=== PATIENT | male | born 1940 | race Caucasian/White ===

== ENCOUNTER → 2023-05-14 08:03 | Outpatient (CLI) | payer MEDICARE, SELFPAY ==
[2023-05-14 09:14] LABS: Hematocrit 37.9 % (41-53); Hemoglobin 13.2 g/dL (13.5-17.5); Mean Corpuscular HGB Conc 34.8 % (30-36); Mean Corpuscular Hemoglobin 31.3 PG (26-34); Mean Corpuscular Volume 89.8 fL (80-100); Platelet Count 183 X10^3/uL (150-400); Red Blood Cell Count 4.22 X10^6/uL (4.5-5.9); Red Cell Distribution Width 13.8 % (11.6-14.8); White Blood Cell Count 6.5 X10^3/uL (4.5-11.0)
[2023-05-14 09:32] LABS: HEMOLYSIS < 15 (0-50)
[2023-05-14 09:40] LABS: Alanine Aminotransferase 18 IU/L (<50); Albumin 4.1 g/dL (3.5-5.0); Albumin Globulin Ratio 1.3 (1.0-2.8); Alkaline Phosphatase 55 U/L (38-126); Aspartate Aminotransferase 23 IU/L (17-59); BUN Creatinine Ratio 17.7 (6-22); Blood Urea Nitrogen 14 mg/dL (9-20); Carbon Dioxide 30 mmol/L (22-32); Chloride 103 mmol/L (98-107); Cholesterol 199 mg/dL (140-199); Estimated Glomerular Filt Rate > 60 mL/min (>60); Globulin 3.1 g/dL (1.7-4.1); Glucose 97 mg/dL (80-110); HDL Cholesterol 46 mg/dL (40-60); LDL Cholesterol Calculated 142 mg/dL (<100); Potassium 4.4 mmol/L (3.4-5.1); Sodium 139 mmol/L (137-145); Total Protein 7.2 g/dL (6.3-8.2); Triglycerides 57 mg/dL (35-150)
[2023-05-14 10:11] LABS: TSH w/ Reflex to FT4 1.65 uIU/mL (0.47-4.68)
[2023-05-14 10:12] LABS: Prostate Specific Antigen 0.204 ng/mL (0.10-4.00)
== END ==
PROVIDERS: PCP Internal Medicine; Referring Provider Internal Medicine; Visit Provider Internal Medicine
DX: E78.2 Mixed hyperlipidemia (principal); N40.1 Benign prostatic hyperplasia with lower urinary tract symptoms; I10 Essential (primary) hypertension; N13.8 Other obstructive and reflux uropathy
CPT/HCPCS: 36415; 80053; 80061; 84153; 84443; 85027

== ENCOUNTER 2023-11-26 15:40 | Emergency (ER) | payer MEDICARE, SELFPAY ==
[2023-11-26] VITALS (23 sets, daily range): BP systolic 120–164; BP diastolic 64–116; PULSE 67–143; RESP 15–30; TEMP 36.4; O2SAT 93–97; BMI 29.5
--- NOTE | 2023-11-26 15:48 | DI.RAD.S_ITS ---
PROCEDURE: XR CHEST 1V INDICATIONS: chest pain TECHNIQUE: One view of the chest was acquired. COMPARISON: None. FINDINGS: Surgical changes and devices: None. Lungs and pleura: Lungs are clear. No pleural effusions or pneumothorax. Mediastinum: Mediastinal contours appear normal. Heart size is enlarged. Bones and chest wall: No suspicious bony lesions. Overlying soft tissues appear unremarkable. IMPRESSION: No acute pulmonary process. Dictated by: Annemarie Urbina M.D. on 11/26/2023 at 16:48 Approved by: Annemarie Urbina M.D. on 11/26/2023 at 16:48
--- NOTE | 2023-11-26 16:06 | ED_ITS ---
HPI - Arrhythmia/Palpitations General Chief Complaint: Arrhythmia/Palpitations Stated Complaint: tachy, rt bundle branch block Time Seen by Provider: 11/26/23 16:05 Source: patient Mode of arrival: Wheelchair History of Present Illness HPI narrative: 83-year-old male with history of right bundle-branch block, BPH, MAKEDA, hypertension, hyperlipidemia presents with tachycardia. He was seen in primary care office today with reported heart rate to the 140s, stating he felt comfortable and appearing hemodynamically perfused per call from physician I received prior to patient arrival. Patient states he feels completely normal with no symptoms. He sometimes has mild lightheadedness but denies this currently. Denies chest pain, back pain, abdominal flank pain, fevers, chills, nausea or vomiting, any palpitations, shortness of breath, prior episodes similar to this, rate-controlling medications, anticoagulation, leg swelling, leg pain, syncope, known heart problems, or any other new concerns. He does not drink alcohol. He denies energy drinks or illicit drug use. He has no known thyroid problems. Dr. Akers saw patient. I spoke with him and confirmed we have no prior EKGs. Patient denies prior EKGs or known heart problems. There is chart history of RBBB, but it is not clear where this came from currently. Related Data Previous Rx's Medication Instructions Recorded amlodipine 5 mg tablet 5 mg PO DAILY #90 tabs 05/08/23 lisinopril 20 mg tablet 20 mg PO DAILY #90 tabs 05/08/23 apixaban 5 mg tablet (Eliquis) 5 mg PO BID #30 tabs 11/26/23 diltiazem HCl 60 mg 60 mg PO DAILY #20 caps 11/26/23 capsule,extended release 12 hr Allergies Allergy/AdvReac Type Severity Reaction Status Date / Time No Known Drug Allergies Allergy Verified 11/26/23 12:45 Review of Systems Review of Systems Narrative: Constitutional: no fever, no chills Eyes: no visual disturbance, no discharge Ears, Nose, Mouth, Throat: no rhinorrhea, no sore throat Cardiovascular: no chest pain, no palpitations Respiratory: no cough, no shortness of breath Gastrointestinal: no abdominal pain, no vomiting, no diarrhea Genitourinary: no dysuria, no hematuria Musculoskeletal: no back pain, no neck stiffness Skin: no rash, no wound Neurological: no focal weakness, no focal numbness Patient History Medical History (Updated 11/26/23 @ 19:17 by Dante Gallo MD) RBBB Narrow complex tachycardia Mumps (~1950) Chicken pox (~1949) Skin cancer (~2019) Erectile dysfunction BPH w urinary obs/LUTS Obstructive sleep apnea Mixed hyperlipidemia Essential hypertension Surgical History Anesthesia Brain bleed (~2014) Family History Father Hypertension Mother Breast cancer Social History details: (Kristy Betancur), one son; 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 Smoking Status: Former smoker Smoking Status: Former smoker Substance Use Type: does not use Exam Narrative Exam Narrative: Const: no acute distress, non toxic appearing; calm, conversant, pleasant Eyes: PERRLA, EOMI ENT: mucous membranes moist Neck: supple, non-tender Resp: no respiratory distress, clear to auscultation bilaterally Card: regular tachycardia, no murmurs Abd: non tender diffusely, no rigidity or rebound or guarding Back: no T or L spine tenderness, no CVA tenderness bilaterally Extrem: no deformities, no swelling bilateral lower extremities, 2+ distal pulses all extremities Neuro: ANOx4, child nutrition manager grossly intact, grossly intact sensation and strength all extremities Skin: no rash, warm and dry Initial Vital Signs Initial Vital Signs: Vital Signs Temperature 97.6 F 11/26/23 15:44 Pulse Rate 141 H 11/26/23 15:44 Respiratory Rate 16 11/26/23 15:44 Blood Pressure 123/80 11/26/23 15:44 Pulse Oximetry 97 11/26/23 15:44 Oxygen Delivery Method Room Air 11/26/23 15:44 Course Course Course Narrative: This presentation with EKGs as described below is highly suggestive of supraventricular tachycardia, with suspicion for atrial flutter, atrial fibrillation, SVT, sinus tachycardia possible no seeming less likely at this time. Note on 2 EKGs, I see what appear to be P waves, making ventricular tachycardia extremely unlikely. This is also extremely unlikely given patient's hemodynamic stability and lack of any clear symptoms, with unclear duration of symptoms. I am obtaining CBC, CMP, magnesium, TSH, serial EKGs, chest x-ray, giving small fluid bolus and will closely reassess. EKG shows wide complex rhythm with probable right bundle-branch block, regular tachycardia. Interval prolongation in this setting. Repeat EKG similar. I suspect this is atrial flutter or similar. Given that there are visible P waves, ventricular tachycardia seems extremely unlikely. Patient has also been stable with this with no chest pain or shortness of breath or lightheadedness or syncope, unclear how long he has been in this rhythm but all of this making ventricular dysrhythmia very unlikely. CBC reassuring, no leukocytosis or anemia or thrombocytopenia. INR within normal limits. PTT elevated. CMP overall reassuring. Troponin reassuring. Lipase reassuring. TSH reassuring. Radiology review of CXR below, which I agree with on my independent review: FINDINGS: Surgical changes and devices: None. Lungs and pleura: Lungs are clear. No pleural effusions or pneumothorax. Mediastinum: Mediastinal contours appear normal. Heart size is enlarged. Bones and chest wall: No suspicious bony lesions. Overlying soft tissues appear unremarkable. IMPRESSION: No acute pulmonary process. Dictated by: Annemarie Urbina M.D. on 11/26/2023 at 16:48 After receiving fluids, patient spontaneously converted his rhythm. He initially. He got from atrial flutter to atrial fibrillation with mild associated rapid ventricular response. He then converted completely to normal sinus rhythm. He remains asymptomatic throughout this, appearing very well and perfused. We discussed his risk of stroke vs risk of bleeding and chose together to initiate Eliquis 5 mg p.o. b.i.d. in addition, I did start very low- dose diltiazem, 30 mg p.o., given he was quite tachycardic on arrival and I suspect he may need this. He appears very appropriate for discharge with close follow-up and strict return precautions. I am prescribing him both these medications and refer him to Cardiology, though he understands he should see his primary doctor within 3-5 days for reassessment. Patient understands and agrees with this plan with no other new concerns. He understands careful use of diltiazem, which is being added to other antihypertensives; he is aware of risk of lightheadedness or bradycardia and will pursue close follow up. Repeat exam and vital signs reassuring. Questions answered. Plan reviewed. Patient discharged in stable condition. Note recorded respiratory rate is inaccurate; he had respiratory in mid teens consistently. Orders Ordered: ED Orders 11/26/23 15:48 XR chest 1V Stat EKG-12 Lead Stat 11/26/23 15:54 Complete Blood Count AUTO DIFF Stat Comprehensive Metabolic Panel Stat Lipase Stat Magnesium Stat PTT Partial Thromboplastin Shashi Stat Prothrombin Time INR Stat TSH [Thyroid Stimulating Hormone] Stat Troponin & CK Cardiac Panel Stat Discontinued Medications Adenosine (Adenosine 6 Mg/2 Ml Vial) 6 mg IV NOW ONE Stop: 11/26/23 17:43 Last Admin: 11/26/23 18:00 Dose: Not Given Documented By: SPF Apixaban (Apixaban 5 Mg Tablet) 5 mg PO NOW ONE Stop: 11/26/23 17:59 Last Admin: 11/26/23 18:45 Dose: 5 mg Documented By: SPF Aspirin (Aspirin 81 Mg Chew Tab) 324 mg PO NOW ONE Stop: 11/26/23 15:49 Last Admin: 11/26/23 16:13 Dose: Not Given Documented By: SB Diltiazem HCl (Diltiazem 5 Mg/Ml Sdv) 10 mg IV NOW ONE Stop: 11/26/23 17:59 Last Admin: 11/26/23 18:54 Dose: Not Given Documented By: SPF Diltiazem HCl (Diltiazem 30 Mg Tablet) 30 mg PO NOW ONE Stop: 11/26/23 18:29 Last Admin: 11/26/23 18:45 Dose: 30 mg Documented By: SPF Sodium Chloride (Normal Saline 0.9%) 1,000 mls @ 1,000 mls/hr IV BOLUS PRN PRN Reason: Fluid replacement Vital Signs Vital signs: Vital Signs - 8 hr 11/26/23 15:44 11/26/23 16:18 11/26/23 16:19 Temperature 97.6 F Pulse Rate 141 H 139 H Respiratory Rate 16 18 Blood Pressure 123/80 164/116 H Pulse Oximetry 97 Oxygen Delivery Method Room Air 11/26/23 16:19 11/26/23 16:21 11/26/23 16:21 Temperature Pulse Rate 139 H 140 H Respiratory Rate 17 20 Blood Pressure 129/67 Pulse Oximetry 96 95 Oxygen Delivery Method 11/26/23 16:30 11/26/23 16:30 11/26/23 16:41 Temperature Pulse Rate 140 H Respiratory Rate 17 Blood Pressure 141/74 H 130/68 Pulse Oximetry 95 Oxygen Delivery Method Room Air 11/26/23 16:41 11/26/23 16:47 11/26/23 16:47 Temperature Pulse Rate 140 H 140 H Respiratory Rate 15 19 Blood Pressure 142/69 H Pulse Oximetry 95 96 Oxygen Delivery Method 11/26/23 16:48 11/26/23 16:48 11/26/23 16:49 Temperature Pulse Rate 140 H Respiratory Rate 26 H Blood Pressure 138/68 134/68 Pulse Oximetry 95 Oxygen Delivery Method 11/26/23 16:49 11/26/23 16:50 11/26/23 16:50 Temperature Pulse Rate 140 H 140 H Respiratory Rate 24 24 Blood Pressure 127/71 Pulse Oximetry 96 97 Oxygen Delivery Method 11/26/23 16:51 11/26/23 16:51 11/26/23 17:00 Temperature Pulse Rate 141 H 140 H Respiratory Rate 23 20 Blood Pressure 124/70 Pulse Oximetry 97 96 Oxygen Delivery Method 11/26/23 17:00 11/26/23 17:10 11/26/23 17:10 Temperature Pulse Rate 140 H Respiratory Rate 23 Blood Pressure 132/66 133/64 Pulse Oximetry 96 Oxygen Delivery Method 11/26/23 17:30 11/26/23 18:00 11/26/23 18:06 Temperature Pulse Rate 143 H 74 Respiratory Rate 16 25 H Blood Pressure 136/65 Pulse Oximetry 96 94 Oxygen Delivery Method 11/26/23 18:06 11/26/23 18:10 11/26/23 18:10 Temperature Pulse Rate 75 75 Respiratory Rate 16 26 H Blood Pressure 131/71 Pulse Oximetry 96 94 Oxygen Delivery Method 11/26/23 18:20 11/26/23 18:20 11/26/23 18:30 Temperature Pulse Rate 73 Respiratory Rate 30 H Blood Pressure 129/75 124/70 Pulse Oximetry 95 Oxygen Delivery Method 11/26/23 18:30 11/26/23 18:40 11/26/23 18:40 Temperature Pulse Rate 69 70 Respiratory Rate 15 15 Blood Pressure 120/71 Pulse Oximetry 95 93 Oxygen Delivery Method 11/26/23 18:45 11/26/23 18:50 11/26/23 18:50 Temperature Pulse Rate 70 72 Respiratory Rate 25 H Blood Pressure 120/71 149/72 H Pulse Oximetry 94 Oxygen Delivery Method 11/26/23 19:00 11/26/23 19:00 Temperature Pulse Rate 67 Respiratory Rate 26 H Blood Pressure 140/66 Pulse Oximetry 95 Oxygen Delivery Method MDM - Arrhythmia/Palpitations Lab Data 11/26/23 15:54 11/26/23 15:54 Labs: Lab Results 11/26/23 Range/Units 15:54 WBC 8.8 (4.5-11.0) X10^3/uL RBC 4.63 (4.5-5.9) X10^6/uL Hgb 14.5 (13.5-17.5) g/dL Hct 41.9 (41-53) % MCV 90.6 (80-100) fL MCH 31.4 (26-34) PG MCHC 34.7 (30-36) % RDW 13.3 (11.6-14.8) % Plt Count 260 (150-400) X10^3/uL Neut % (Auto) 51.1 (50-75) % Lymph % (Auto) 37.0 (25-40) % Porter % (Auto) 7.9 (3-14) % Eos % (Auto) 3.4 (2-4) % Baso % (Auto) 0.6 (0-2) % Neut # (Auto) 4500 (5096-4599) /uL Lymph # (Auto) 3300 (2933-5440) /uL Porter # (Auto) 700 (0-900) /uL Eos # (Auto) 300 (0-450) /uL Baso # (Auto) 100 (0-100) /uL PT 12.6 H (9.4-12.5) SECONDS INR 1.1 (0.9-1.3) APTT 69 H (25.1-36.5) SECONDS Sodium 140 (137-145) mmol/L Potassium 4.7 (3.4-5.1) mmol/L Chloride 103 (98-107) mmol/L Carbon Dioxide 31 (22-32) mmol/L BUN 23 H (9-20) mg/dL Creatinine 0.93 (0.66-1.25) mg/dL Estimated GFR > 60 (>60) mL/min BUN/Creatinine Ratio 24.7 H (6-22) Glucose 105 (80-110) mg/dL Calcium 9.3 (8.4-10.2) mg/dL Magnesium 2.1 (1.6-2.3) mg/dL Total Bilirubin 0.7 (0.2-1.3) mg/dL AST 24 (17-59) IU/L ALT 19 (<50) IU/L Alkaline Phosphatase 69 (38-126) U/L Total Creatine Kinase 40 L (55-170) U/L Troponin I < 0.012 (0.01-0.034) ng/mL Total Protein 8.1 (6.3-8.2) g/dL Albumin 4.5 (3.5-5.0) g/dL Globulin 3.6 (1.7-4.1) g/dL Albumin/Globulin Ratio 1.3 (1.0-2.8) Lipase 63 (23-300) U/L TSH 1.70 (0.47-4.68) uIU/mL Discharge Plan Departure Patient Disposition: Home Clinical Impression: Tachycardia, Atrial fibrillation, Atrial flutter Instructions: DI for Atrial Fibrillation Activity Restrictions/Additional Instructions: It was a pleasure taking care of you today. It is important to fully read and understand the below. Please ask us if you have any questions. We think the most likely cause of your fast heart rate today was a combination of atrial flutter and atrial fibrillation. As discussed, you did very well here, converting on your own to a normal rhythm with fluids alone. We discussed however the importance of blood thinners and rate controlling medications, and I am prescribing you both Eliquis and diltiazem as discussed. I am also referring you to cardiology. Regardless, please see your primary doctor within 3-5 days to discuss further testing and treatment. No tests or assessments are perfect, and your condition could private branch exchange repairer time. If your symptoms change or worsen, it is very important you immediately seek medical care. If you have any new or worsening pain, lightheadedness or passing out, feeling your heart beating funny, shortness of breath, fever, vomiting, confusion, numbness, weakness, or anything else that concerns you, please immediately seek medical care. If you have been prescribed any medications: please read the drug package inserts on how to properly use the medication and any potential side effects. If you had labs (blood tests) or imaging (CT scan or x-rays) done during your visit: please follow up on the results of these with your primary care doctor, as discussed. In addition, please know the results we received today may be preliminary. Our usual practice is to follow up on tests within a few days of a patient's discharge from the Emergency Department and notify you of any changes. These may lead to changes to your treatment plan. However, the best way to obtain and interpret these test results is through your Primary Care Provider. If you need to update your contact information, please stop by the motel front desk clerk and alert the Registration personnel before you leave the Emergency Department. Thank you for the opportunity to participate in your healthcare. We are always here and happy to see you in the future. Prescriptions: New Eliquis 5 mg tablet 5 mg PO BID Qty: 30 0RF diltiazem HCl 60 mg capsule,extended release 12 hr 60 mg PO DAILY Qty: 20 0RF No Action amlodipine 5 mg tablet 5 mg PO DAILY Qty: 90 3RF lisinopril 20 mg tablet 20 mg PO DAILY Qty: 90 3RF Referrals: Mil Akers MD [Primary Care Provider] - Stand Alone Forms: Patient Portal/API
[2023-11-26 16:09] LABS: Add Manual Diff / Slide Review NO; Basophils Absolute Auto 100 /uL (0-100); Basophils Percent Auto 0.6 % (0-2); Eosinophils Absolute Auto 300 /uL (0-450); Eosinophils Percent Auto 3.4 % (2-4); Hematocrit 41.9 % (41-53); Hemoglobin 14.5 g/dL (13.5-17.5); Lymphocytes Absolute Auto 3300 /uL (1100-4500); Mean Corpuscular HGB Conc 34.7 % (30-36); Mean Corpuscular Hemoglobin 31.4 PG (26-34); Mean Corpuscular Volume 90.6 fL (80-100); Monocytes Absolute Auto 700 /uL (0-900); Monocytes Percent Auto 7.9 % (3-14); Neutrophils Absolute Auto 4500 /uL (1500-7000); Neutrophils Percent Auto 51.1 % (50-75); Platelet Count 260 X10^3/uL (150-400); Red Blood Cell Count 4.63 X10^6/uL (4.5-5.9); Red Cell Distribution Width 13.3 % (11.6-14.8); White Blood Cell Count 8.8 X10^3/uL (4.5-11.0)
[2023-11-26 16:15] LABS: INR 1.1 (0.9-1.3); Prothrombin Time 12.6 SECONDS (9.4-12.5)
[2023-11-26 16:18] LABS: PTT Partial Thromboplastin Tim 69 SECONDS (25.1-36.5)
[2023-11-26 16:25] LABS: Alanine Aminotransferase 19 IU/L (<50); Albumin 4.5 g/dL (3.5-5.0); Albumin Globulin Ratio 1.3 (1.0-2.8); Alkaline Phosphatase 69 U/L (38-126); Aspartate Aminotransferase 24 IU/L (17-59); BUN Creatinine Ratio 24.7 (6-22); Bilirubin Total 0.7 mg/dL (0.2-1.3); Blood Urea Nitrogen 23 mg/dL (9-20); Calcium 9.3 mg/dL (8.4-10.2); Carbon Dioxide 31 mmol/L (22-32); Chloride 103 mmol/L (98-107); Creatine Kinase 40 U/L (55-170); Estimated Glomerular Filt Rate > 60 mL/min (>60); Globulin 3.6 g/dL (1.7-4.1); Glucose 105 mg/dL (80-110); HEMOLYSIS < 15 (0-50); Lipase 63 U/L (23-300); Magnesium 2.1 mg/dL (1.6-2.3); Potassium 4.7 mmol/L (3.4-5.1); Sodium 140 mmol/L (137-145); Total Protein 8.1 g/dL (6.3-8.2)
--- NOTE | 2023-11-26 16:30 | PC.NURSE ---
Pt came over because he was told to by his PCP during routine check up.
[2023-11-26 16:36] LABS: Troponin I < 0.012 ng/mL (0.01-0.034)
[2023-11-26] MEDS: APIXABAN 5 MG TABLET PO (18:45)
[2023-11-26] MEDS: dilTIAZem 30 MG TABLET PO (18:45)
== END 2023-11-26 19:28 | disposition home or self-care (01) ==
PROVIDERS: Emergency Provider Emergency Medicine; PCP Internal Medicine
DX: R00.0 Tachycardia, unspecified (principal); I48.91 Unspecified atrial fibrillation; I48.92 Unspecified atrial flutter
CPT/HCPCS: 36415; 71045; 80053; 82550; 83690; 83735; 84443; 84484; 85025; 85610; 85730; 93005; 93010; 99284

== ENCOUNTER → 2023-12-02 09:00 | Outpatient (CLI) | payer MEDICARE, SELFPAY ==
--- NOTE | 2023-12-02 09:01 | DI.ECHO.S_ITS ---
[facility] +---------+ [facility] +---------+ : : [address] [place] : : : : [id number] : : : : Phone: [phone]+ Echocardiogram Report + + :Name: NADIA LORD Study Date: 12/02/2023 Height: 70 in : :[facility] ReadingLocation: Weight: 206 lb : : Gender: Male BSA: 2.1 m2 : :: 1940 Age: 83 yrs BP: 170/81 mmHg: :Reason For Study: ATRIAL FIBRILLATION : :Ordering Physician: BARBARA, : :YONY Performed By: Ene Lee : :Referring: YONY JIMENEZ : + + Interpretation Summary This is a technically difficult study enhanced with Definitiy echocontrast. Sinus bradycardia; HR mostly 53-55 bpm during the exam. Normal LV size and wall thickness. There is distal septal dyskinesis; otherwise global hypokinesis with moderately reduced LV systolic function estimated at 35-40%. EPSS is 1.8 cm consistent with advanced cardiomyopathy. Mild RA enlargement; mild RV enlargement. Mild aortic stenosis with mild associated aortic regurgitation. No prior study available for comparison. Procedure: A two-dimensional transthoracic echocardiogram with color flow and Doppler was performed. The study quality was technically adequate. A contrast injection of Definity was performed to improve assessment of LV function. There is no prior echocardiogram noted for this patient. The patient was in sinus bradycardia with heart rates between 52-75 bpm during the exam. Left Ventricle: The left ventricle is normal in size. The ejection fraction is estimated to be 35-40%. Right Ventricle: The right ventricle is mildly dilated. The right ventricular systolic function is normal. Atria: The left atrial size is normal. The right atrium is mildly dilated. There is no Doppler evidence for an interatrial shunt. Mitral Valve: The mitral valve leaflets appear mildly thickened, but open well. There is mild mitral annular calcification. There is mild mitral regurgitation. Aortic Valve: The aortic valve is mildly calcified. The aortic valve is trileaflet. There is mild aortic stenosis. The peak aortic velocity is 2.7 m/sec. The aortic valve mean gradient is 17 mmHg. The calculated aortic valve area is 1.2 cm2. There is mild aortic regurgitation. Tricuspid Valve: The tricuspid valve is normal in structure and function. There is a trace or physiologic amount of tricuspid regurgitation. Pulmonary artery pressures cannot be estimated because of the lack of a measurable TR jet velocity. Pulmonic Valve: The pulmonic valve is not well seen, but is grossly normal. There is a trace or physiologic amount of pulmonic regurgitation. Great Vessels: The aortic root is normal size. The ascending aorta is at the upper limits of normal in size. The IVC is of normal diameter and collapses greater than 50% with a sniff. This suggests a low right atrial pressure of 3 mm Hg. Pericardium/ Pleura There is no pericardial effusion. There is no pleural effusion. MMode/2D Measurements & Calculations LVIDd: 5.9 cm LVOT diam: 2.3 cm LVIDs: 4.5 cm Ao root diam: 3.9 cm FS: 23.1 % asc Aorta Diam: 3.7 cm EPSS: 1.8 cm Ao Arch Diam (Prox Trans): 2.8 cm IVSd: 1.0 cm LVPWd: 0.75 cm LV burnett. diameter/BSA (cm/m^2): 2.8 LV sys. diameter/BSA (cm/m^2): 2.1 LA A2 area: 17.6 cm2 RA long axis: 5.3 cm LA A4 area: 21.3 cm2 RA area: 22.6 cm2 LA length (vol): 6.5 cm RA vol: 81.1 ml LA vol: 49.2 ml RA : 38.4 ml/m2 LA vol index: 23.3 ml/m2 IVC diam: 1.1 cm RVD1 (basal): 4.3 cm RVD2 (mid): 3.5 cm TAPSE: 2.1 cm Doppler Measurements & Calculations Ao V2 max: 265.7 cm/sec LVOT Max Enoch: 77.2 cm/sec Ao V2 mean: 187.4 cm/sec LV V1 max P.4 mmHg Ao max P.4 mmHg LV V1 VTI: 18.1 cm Ao mean P.4 mmHg GABRIELA(I,D): 1.2 cm2 Ao V2 VTI: 62.7 cm GABRIELA(V,D): 1.2 cm2 sev ratio: 0.29 GABRIEAL indexed to BSA (cm^2/m^2): 0.56 AI P1/2t: 703.4 msec AI dec slope: 153.7 cm/sec2 MV E max enoch: 74.6 cm/sec PA V2 max: 91.2 cm/sec MV A max enoch: 93.6 cm/sec PA V2 mean: 72.7 cm/sec MV E/A: 0.80 PA mean P.2 mmHg Med Peak E' Enoch: 5.3 cm/sec PA pr(Accel): 34.5 mmHg E/E' med: 14.0 Lat Peak E' Enoch: 8.3 cm/sec E/E' lat: 9.0 E/e' average: 11.5 MV dec time: 0.28 sec SV(LVOT): 74.1 ml Electronically signed by: Kalpana Huber M.D. on Reading Physician:12/03/2023 12:20 AM
== END ==
PROVIDERS: PCP Internal Medicine; Referring Provider Internal Medicine; Visit Provider Internal Medicine
DX: I08.0 Rheumatic disorders of both mitral and aortic valves (principal); I48.0 Paroxysmal atrial fibrillation; I48.92 Unspecified atrial flutter
CPT/HCPCS: C8929; Q9957

== ENCOUNTER → 2023-12-05 09:30 | Outpatient (CLI) | payer MEDICARE, SELFPAY | LOC: CAR 09:31 | PROVIDERS: PCP Internal Medicine; Referring Provider Internal Medicine; Visit Provider Internal Medicine | DX: I48.91 Unspecified atrial fibrillation (principal); I48.92 Unspecified atrial flutter | CPT/HCPCS: 93246 ==

== ENCOUNTER → 2024-01-22 10:17 | Outpatient (CLI) | payer MEDICARE, SELFPAY ==
[2024-01-22 13:08] LABS: Alanine Aminotransferase 18 IU/L (<50); Albumin 4.4 g/dL (3.5-5.0); Albumin Globulin Ratio 1.6 (1.0-2.8); Alkaline Phosphatase 68 U/L (38-126); Aspartate Aminotransferase 39 IU/L (17-59); BUN Creatinine Ratio 22.7 (6-22); Bilirubin Total 1.1 mg/dL (0.2-1.3); Blood Urea Nitrogen 20 mg/dL (9-20); Calcium 9.4 mg/dL (8.4-10.2); Carbon Dioxide 27 mmol/L (22-32); Chloride 106 mmol/L (98-107); Estimated Glomerular Filt Rate > 60 mL/min (>60); Globulin 2.8 g/dL (1.7-4.1); Glucose 105 mg/dL (80-110); HEMOLYSIS < 15 (0-50); Magnesium 2.2 mg/dL (1.6-2.3); Potassium 5.3 mmol/L (3.4-5.1); Sodium 140 mmol/L (137-145); Total Protein 7.2 g/dL (6.3-8.2)
== END ==
LOC: LAB 10:19
PROVIDERS: PCP Internal Medicine; Referring Provider Specialist; Visit Provider Specialist
DX: E78.00 Pure hypercholesterolemia, unspecified (principal); I10 Essential (primary) hypertension; I48.92 Unspecified atrial flutter
CPT/HCPCS: 36415; 80053; 80061; 83704; 83735

== ENCOUNTER → 2024-01-23 08:28 | Outpatient (CLI) | payer MEDICARE, SELFPAY ==
--- NOTE | 2024-01-23 08:29 | DI.NM.S_ITS ---
PROCEDURE: NM BRIELLE PERF SPECT REST & STR Rest and exercise myocardial perfusion SPECT with gated imaging and ejection fraction RADIOPHARMACEUTICAL: 12.5 mCi Tc-99m sestamibi IV at rest and 25.3 mCi Tc-99m sestamibi IV at peak exercise. A 4-ady-seobzxym was performed. INDICATIONS: Cardiomyopathy, unspecified TECHNIQUE: Radiopharmaceutical was injected at peak stress test, and also at rest. SPECT images were obtained. SPECT myocardial perfusion images were displayed in short axis, horizontal long axis, and vertical long axis views. Gated images were reviewed using [employer] software. COMPARISON: None. CARDIAC STRESS: A standard [place] treadmill exercise tolerance test was performed by the patient under the supervision of an attending staff. The patient exercised for 5 minutes and 24 seconds; 7.0 METS; functional aerobic impairment (LUL) is -15%. Hemodynamic data: There is normal blood pressure and heart rate response to exercise stress. Patient achieved 96% of maximum predicted heart rate at peak exercise. Maximum blood pressure 196/60. Symptoms: Patient denied chest pain during exercise. EKG: No diagnostic EKG changes of ischemia; occasional PVCs. FINDINGS: Raw data: There is good myocardial labeling by radiotracer. No significant motion artifacts. Pjlu-yp-yefcd ratio is 0.30 (normal is less than 0.38 for sestamibi tracer, and less than 0.50 for thallium tracer). Left ventricle function: Gated images demonstrate normal left ventricle wall thickening. No segmental wall motion abnormality. No transient ischemic dilation; TID is 0.81 (normal less than 1.3). The left ventricle resting end-diastolic volume is 159 mL. Calculated left ventricle stress ejection fraction is 70%; normal values are above 45%. Myocardial perfusion: There is a small size, mild intensity fixed inferoapical and inferolateral apical wall defect that improves but does not completely resolve in prone imaging. No reversible perfusion defects. IMPRESSION: Low risk study. Small size, mild intensity fixed inferoapical and inferolateral apical wall defect improves but does not completely resolve with prone imaging. There is no significant hypokinesis noted in this area making this most consistent with artifact however subendocardial scar cannot be ruled out. No reversible perfusion defects. Dilated LV with an EDV of 159 mL with normal function. No exercise-induced ECG changes other than a rare. Normal hemodynamic response. Good exercise capacity. Dictated by: Adela Zabala D.O. on 01/23/2024 at 16:20 Approved by: Adela Zabala D.O. on 01/23/2024 at 16:27
== END ==
PROVIDERS: PCP Internal Medicine; Referring Provider Specialist; Visit Provider Specialist
DX: I42.9 Cardiomyopathy, unspecified (principal)
CPT/HCPCS: 78452; 93017; A9502

== ENCOUNTER → 2024-06-16 07:17 | Outpatient (CLI) | payer MEDICARE, BC, SELFPAY ==
[2024-06-16 07:48] LABS: Add Manual Diff / Slide Review NO; Basophils Absolute Auto 0 /uL (0-100); Basophils Percent Auto 0.6 % (0-2); Eosinophils Absolute Auto 300 /uL (0-450); Eosinophils Percent Auto 4.4 % (2-4); Hematocrit 36.7 % (41-53); Hemoglobin 12.6 g/dL (13.5-17.5); Lymphocytes Absolute Auto 3400 /uL (1100-4500); Mean Corpuscular HGB Conc 34.4 % (30-36); Mean Corpuscular Hemoglobin 31.2 PG (26-34); Mean Corpuscular Volume 90.5 fL (80-100); Monocytes Absolute Auto 600 /uL (0-900); Monocytes Percent Auto 8.2 % (3-14); Neutrophils Absolute Auto 3300 /uL (1500-7000); Neutrophils Percent Auto 42.8 % (50-75); Platelet Count 205 X10^3/uL (150-400); Red Blood Cell Count 4.06 X10^6/uL (4.5-5.9); Red Cell Distribution Width 13.7 % (11.6-14.8); White Blood Cell Count 7.8 X10^3/uL (4.5-11.0)
[2024-06-16 08:31] LABS: Appearance Urine UA CLEAR; Bilirubin Urine UA NEGATIVE (NEGATIVE); Color Urine UA YELLOW; Glucose Urine UA NEGATIVE (Negative); Ketones Urine UA NEGATIVE (NEGATIVE); Leukocyte Esterase Urine UA NEGATIVE (NEGATIVE); Nitrite Urine UA NEGATIVE (Negative); Occult Blood Urine UA NEGATIVE (Negative); Protein Urine UA NEGATIVE (Negative); Specific Gravity Urine UA 1.025 (1.000-1.035); Urobilinogen Urine UA 0.2 E.U./dL (0.2); pH Urine UA 5.5 (4.5-8.0)
[2024-06-16 09:00] LABS: Bacteria Urine None Seen; Culture Indicated Urine Cult Not Indicated; RBC Urine None Seen (0-5/HPF); Squamous Epithelial Cell Urine None Seen (0-5/HPF); Urine Volume 10mL (spun); WBC Urine None Seen (0-5/HPF)
[2024-06-16 09:04] LABS: Prostate Specific Antigen 0.188 ng/mL (0.10-4.00)
== END ==
PROVIDERS: PCP Internal Medicine; Referring Provider Internal Medicine; Visit Provider Internal Medicine
DX: N13.8 Other obstructive and reflux uropathy (principal); N40.1 Benign prostatic hyperplasia with lower urinary tract symptoms
CPT/HCPCS: 36415; 81001; 84153; 85025

== ENCOUNTER → 2024-07-14 08:37 | Outpatient (CLI) | payer MEDICARE, BC, SELFPAY ==
[2024-07-14 09:46] LABS: Hematocrit 38.2 % (41-53); Hemoglobin 12.9 g/dL (13.5-17.5); Mean Corpuscular HGB Conc 33.9 % (30-36); Mean Corpuscular Hemoglobin 31.2 PG (26-34); Mean Corpuscular Volume 92.1 fL (80-100); Platelet Count 237 X10^3/uL (150-400); Red Blood Cell Count 4.14 X10^6/uL (4.5-5.9); Red Cell Distribution Width 14.1 % (11.6-14.8); White Blood Cell Count 7.5 X10^3/uL (4.5-11.0)
[2024-07-14 10:16] LABS: Alanine Aminotransferase 22 IU/L (<50); Albumin 4.3 g/dL (3.5-5.0); Albumin Globulin Ratio 1.6 (1.0-2.8); Alkaline Phosphatase 65 U/L (38-126); Aspartate Aminotransferase 24 IU/L (17-59); BUN Creatinine Ratio 19.3 (6-22); Bilirubin Total 0.9 mg/dL (0.2-1.3); Blood Urea Nitrogen 16 mg/dL (9-20); Calcium 9.5 mg/dL (8.4-10.2); Carbon Dioxide 29 mmol/L (22-32); Chloride 101 mmol/L (98-107); Estimated Glomerular Filt Rate > 60 mL/min (>60); Globulin 2.7 g/dL (1.7-4.1); Glucose 103 mg/dL (80-110); HEMOLYSIS < 15 (0-50); Magnesium 1.9 mg/dL (1.6-2.3); Potassium 4.4 mmol/L (3.4-5.1); Sodium 137 mmol/L (137-145)
== END ==
LOC: LAB 08:39
PROVIDERS: PCP Internal Medicine; Referring Provider Specialist; Visit Provider Specialist
DX: E78.00 Pure hypercholesterolemia, unspecified (principal); I10 Essential (primary) hypertension; I48.92 Unspecified atrial flutter
CPT/HCPCS: 36415; 80053; 80061; 83704; 83735; 85027

== ENCOUNTER 2024-11-30 11:52 | Emergency (ER) | payer MEDICARE, BC, SELFPAY ==
[2024-11-30] VITALS (48 sets, daily range): BP systolic 81–135; BP diastolic 50–77; PULSE 45–144; RESP 16–35; TEMP 36.3–36.4; O2SAT 93–97; BMI 29.4
--- NOTE | 2024-11-30 12:01 | DI.RAD.S_ITS ---
PROCEDURE: XR CHEST 1V INDICATIONS: chest pain TECHNIQUE: One view of the chest was acquired. COMPARISON: [facility], CR, XR CHEST 1V, 11/26/2023, 15:53. FINDINGS: Surgical changes and devices: None. Lungs and pleura: Lungs are clear. No pleural effusions or pneumothorax. Mediastinum: Mediastinal contours appear normal. Heart size is normal. Bones and chest wall: No suspicious bony lesions. Overlying soft tissues appear unremarkable. IMPRESSION: No acute cardiopulmonary abnormality is seen. Dictated by: Kia Cortés M.D. on 11/30/2024 at 11:20 Approved by: Kia Cortés M.D. on 11/30/2024 at 11:22
--- NOTE | 2024-11-30 12:01 | EKG_ITS ---
[address] [address] Test Date: 2024-11-30 Pat Name: George Vasquez Department: [facility] Room: Gender: Male Manager Council: DENNY : 1940 Requested By: Order Number: [id number] Reading MD: Maninder Elizondo Measurements Intervals [place] Rate: 141 P: NM: 116 QRS: 269 QRSD: 140 T: 74 QT: 342 QTc: 523 Interpretive Statements Critical Test Result: High HR Sinus tachycardia Right bundle branch block Inferior infarct , age undetermined T wave abnormality, consider lateral ischemia Electronically Signed On 12-01-2024 8:46:26 PDT by Maninder Elizondo
[2024-11-30 12:20] LABS: Add Manual Diff / Slide Review NO; Basophils Absolute Auto 0 /uL (0-100); Basophils Percent Auto 0.5 % (0-2); Eosinophils Absolute Auto 300 /uL (0-450); Eosinophils Percent Auto 4.1 % (2-4); Hematocrit 42.3 % (41-53); Hemoglobin 14.3 g/dL (13.5-17.5); Lymphocytes Absolute Auto 3000 /uL (1100-4500); Lymphocytes Percent Auto 38.6 % (25-40); Mean Corpuscular HGB Conc 33.8 % (30-36); Mean Corpuscular Hemoglobin 30.8 PG (26-34); Mean Corpuscular Volume 91.2 fL (80-100); Monocytes Absolute Auto 400 /uL (0-900); Monocytes Percent Auto 5.2 % (3-14); Neutrophils Absolute Auto 4100 /uL (1500-7000); Neutrophils Percent Auto 51.6 % (50-75); Platelet Count 232 X10^3/uL (150-400); Red Blood Cell Count 4.64 X10^6/uL (4.5-5.9); White Blood Cell Count 7.9 X10^3/uL (4.5-11.0)
--- NOTE | 2024-11-30 12:24 | PC.NURSE ---
rhythm appears VTACH. attempted vagal manuevers where pt blew into syringe to help induce conversion. unsuccessful. VS stable at this time. Dr Mckeon in to see and states afib RVR and last EKG appears the same. Diltiazem ordered. Code cart in room.
[2024-11-30 12:27] LABS: INR 1.2 (0.9-1.3); Prothrombin Time 13.8 SECONDS (9.4-12.5)
[2024-11-30] MEDS: dilTIAZem 25 MG/5 ML SDV 10 MG IV (12:28)
[2024-11-30 12:32] LABS: Alanine Aminotransferase 31 IU/L (<50); Albumin 4.5 g/dL (3.5-5.0); Albumin Globulin Ratio 1.5 (1.0-2.8); Alkaline Phosphatase 57 U/L (38-126); Aspartate Aminotransferase 34 IU/L (17-59); BUN Creatinine Ratio 19.1 (6-22); Bilirubin Total 0.9 mg/dL (0.2-1.3); Blood Urea Nitrogen 18 mg/dL (9-20); Calcium 9.4 mg/dL (8.4-10.2); Carbon Dioxide 25 mmol/L (22-32); Chloride 103 mmol/L (98-107); Creatine Kinase 57 U/L (55-170); Estimated Glomerular Filt Rate > 60 mL/min (>60); Globulin 3.1 g/dL (1.7-4.1); Glucose 150 mg/dL (80-110); HEMOLYSIS 20 (0-50); Lipase 54 U/L (23-300); Magnesium 1.8 mg/dL (1.6-2.3); Sodium 138 mmol/L (137-145); Total Protein 7.6 g/dL (6.3-8.2)
[2024-11-30 12:43] LABS: NT-proBNP (BNP-Adult 18+) 504 pg/mL (<450); Troponin I < 0.012 ng/mL (0.01-0.034)
[2024-11-30 12:57] LABS: PTT Partial Thromboplastin Tim 125 SECONDS (25.1-36.5)
[2024-11-30] MEDS: METOPROLOL TARTRATE 5 MG/5 ML INJ IV (13:06)
--- NOTE | 2024-11-30 13:20 | PC.NURSE ---
Addendum entered by Trina Harrison R.N. 11/30/24 13:51: Pt states he went to bed fine Original Note: Pt states he went to check his vitals this morning prior to taking bp meds and noticed heart rate was high and low. pt states he did not take his bpmeds this morning bc his bp was low.. Pt noticed when he got up and walked up a couple stairs he felt light headed. pt states he is compliant with his medications.
--- NOTE | 2024-11-30 13:52 | ED_ITS ---
HPI - Arrhythmia/Palpitations General Chief Complaint: Arrhythmia/Palpitations Stated Complaint: Dizzyness, Low BP, High Pulse Time Seen by Provider: 11/30/24 12:09 Source: patient Mode of arrival: Ambulatory History of Present Illness HPI narrative: Patient is a 84-year-old male history of paroxysmal atrial fibrillation on Pradaxa found to be AFib with RVR. He was seen evaluated here last year for the same he spontaneously converted. He has been taking his medication he has not missed a dose. He reports he has feeling a little dizzy and lightheaded. No other symptoms Related Data Home Medications Medication Instructions Recorded Confirmed atorvastatin 20 mg tablet 20 mg PO DAILY 01/09/24 06/24/24 metoprolol tartrate 25 mg tablet 25 mg PO BID 01/09/24 06/24/24 Previous Rx's Medication Instructions Recorded amlodipine 5 mg tablet 5 mg PO DAILY #90 tabs 05/08/23 lisinopril 20 mg tablet 20 mg PO DAILY #90 tabs 05/08/23 dabigatran etexilate 150 mg capsule 150 mg PO BID #60 caps 11/28/23 tamsulosin 0.4 mg capsule 0.4 mg PO BEDTIME #90 caps 06/24/24 Allergies Allergy/AdvReac Type Severity Reaction Status Date / Time No Known Drug Allergies Allergy Verified 11/30/24 11:56 Patient History Medical History Chronic anticoagulation Paroxysmal atrial fibrillation RBBB Mumps (~1950) Chicken pox (~1949) Skin cancer (~2019) Erectile dysfunction BPH w urinary obs/LUTS Obstructive sleep apnea Mixed hyperlipidemia Essential hypertension Surgical History Anesthesia Brain bleed (~2014) Family History Father Hypertension Mother Breast cancer Social History details: (Kristy Betancur), one son; 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 HEENT: Head atraumatic,EOMI, pupils reactive, face symmetric, moist mucous membranes CARDIOVASCULAR: Regular tachycardic rhythm no murmur RESPIRATORY: Breath sounds equal bilaterally, no wheezes rales or rhonchi. ABDOMEN: Soft, nontender. Normoactive bowel sounds all 4 quadrants. No guarding or rebound. EXTREMITIES: Normal range of motion, no clubbing or edema. Neurovascularly intact NEUROLOGICAL: Alert and oriented x4.Normal gait and speech. Cranial nerves II through XII grossly intact. SKIN: Warm, dry, no laceration, no petechiae, no rashes or lesions. Procedures Cardioversion Consent Signed: Yes Indication: AFib with RVR Stability: Unstable Number of attempts (shocks): 1 Joules used: 120 Cardiac rhythm post-cardioversion: NSR Procedural Sedation Consent signed: Yes Indication: cardioversion ASA Class: II Mallampati Airway Classification: Class II IV Propofol dose (mg): 50 Intraservice time/total sedation time (min): 12 ED Sedation Level: Moderate (Concious) Patient Tolerated Procedure: Well and No complications Course Orders Ordered: ED Orders 11/30/24 12:01 XR chest 1V Stat EKG-12 Lead Stat 11/30/24 12:13 Complete Blood Count AUTO DIFF Stat Comprehensive Metabolic Panel Stat Lipase Stat Magnesium Stat NT-proBNP (BNP-Adult 18+) Stat PTT Partial Thromboplastin Shahsi Stat Prothrombin Time INR Stat Troponin & CK Cardiac Panel Stat Discontinued Medications Aspirin (Aspirin 81 Mg Chew Tab) 324 mg PO NOW ONE Stop: 11/30/24 12:02 Last Admin: 11/30/24 12:28 Dose: Not Given Documented By: AGATA Sodium Chloride 9 ml/ (Epinephrine HCl 0.1 mg) 0 ml IV NOW ONE Stop: 11/30/24 13:55 Last Admin: 11/30/24 14:47 Dose: Not Given Documented By: AGATA Diltiazem HCl (Diltiazem 25 Mg/5 Ml Sdv) 10 mg IV NOW ONE Stop: 11/30/24 12:10 Last Admin: 11/30/24 12:28 Dose: 10 mg Documented By: AGATA Sodium Chloride (Normal Saline 0.9%) 1,000 mls @ 1,000 mls/hr IV BOLUS ONE Stop: 11/30/24 14:34 Last Infusion: 11/30/24 14:52 Dose: Infused Documented By: Admin: 11/30/24 13:53 Dose: 1,000 mls/hr Documented By: AGATA Metoprolol Tartrate (Metoprolol Tartrate 5 Mg/5 Ml Inj) 5 mg IV NOW ONE Stop: 11/30/24 13:01 Last Admin: 11/30/24 13:06 Dose: 5 mg Documented By: AGATA Propofol (Propofol 200 Mg/20 Ml Vial) 95 mg 1 mg/kg (95 mg) IV NOW ONE Stop: 11/30/24 13:01 Last Admin: 11/30/24 14:47 Dose: 50 mg Documented By: AGATA Vital Signs Vital signs: Vital Signs - 8 hr 11/30/24 11:56 11/30/24 12:08 11/30/24 12:10 Temperature 97.3 F L Pulse Rate 141 H 138 H Respiratory Rate 17 26 H Blood Pressure 109/63 135/72 Pulse Oximetry 96 Oxygen Delivery Method Room Air Oxygen Flow Rate 11/30/24 12:10 11/30/24 12:15 11/30/24 12:15 Temperature Pulse Rate 137 H 141 H Respiratory Rate 24 24 Blood Pressure 127/65 Pulse Oximetry 95 96 Oxygen Delivery Method Oxygen Flow Rate 11/30/24 12:20 11/30/24 12:20 11/30/24 12:24 Temperature Pulse Rate 140 H 142 H Respiratory Rate 24 35 H Blood Pressure 129/60 Pulse Oximetry 94 95 Oxygen Delivery Method Oxygen Flow Rate 11/30/24 12:25 11/30/24 12:25 11/30/24 12:28 Temperature Pulse Rate 143 H 143 H Respiratory Rate 20 Blood Pressure 113/68 113/68 Pulse Oximetry 95 Oxygen Delivery Method Oxygen Flow Rate 11/30/24 12:30 11/30/24 12:30 11/30/24 12:32 Temperature Pulse Rate 144 H 143 H Respiratory Rate 22 Blood Pressure 107/67 Pulse Oximetry 95 94 Oxygen Delivery Method Oxygen Flow Rate 11/30/24 12:32 11/30/24 12:35 11/30/24 12:35 Temperature Pulse Rate 143 H Respiratory Rate Blood Pressure 101/53 L 99/53 L Pulse Oximetry 94 Oxygen Delivery Method Oxygen Flow Rate 11/30/24 12:40 11/30/24 12:40 11/30/24 12:45 Temperature Pulse Rate 143 H Respiratory Rate 18 Blood Pressure 110/58 L 98/55 L Pulse Oximetry 94 Oxygen Delivery Method Oxygen Flow Rate 11/30/24 12:45 11/30/24 12:50 11/30/24 12:50 Temperature Pulse Rate 143 H 143 H Respiratory Rate 23 19 Blood Pressure 100/55 L Pulse Oximetry 93 93 Oxygen Delivery Method Oxygen Flow Rate 11/30/24 12:55 11/30/24 12:55 11/30/24 13:00 Temperature Pulse Rate 143 H Respiratory Rate 24 Blood Pressure 101/55 L 99/58 L Pulse Oximetry 95 Oxygen Delivery Method Oxygen Flow Rate 11/30/24 13:00 11/30/24 13:05 11/30/24 13:05 Temperature Pulse Rate 143 H 144 H Respiratory Rate 22 22 Blood Pressure 94/56 L Pulse Oximetry 93 95 Oxygen Delivery Method Oxygen Flow Rate 11/30/24 13:09 11/30/24 13:09 11/30/24 13:10 Temperature Pulse Rate 142 H Respiratory Rate Blood Pressure 96/59 L 95/62 Pulse Oximetry 95 Oxygen Delivery Method Oxygen Flow Rate 11/30/24 13:10 11/30/24 13:16 11/30/24 13:16 Temperature Pulse Rate 142 H 134 H Respiratory Rate Blood Pressure 115/59 L Pulse Oximetry 94 93 Oxygen Delivery Method Oxygen Flow Rate 11/30/24 13:18 11/30/24 13:18 11/30/24 13:20 Temperature Pulse Rate 133 H Respiratory Rate Blood Pressure 101/54 L 91/58 L Pulse Oximetry 95 Oxygen Delivery Method Oxygen Flow Rate 11/30/24 13:20 11/30/24 13:22 11/30/24 13:22 Temperature Pulse Rate 133 H 133 H Respiratory Rate Blood Pressure 95/58 L Pulse Oximetry 96 95 Oxygen Delivery Method Oxygen Flow Rate 11/30/24 13:25 11/30/24 13:25 11/30/24 13:30 Temperature Pulse Rate 132 H 132 H Respiratory Rate 28 H 24 Blood Pressure 95/58 L Pulse Oximetry 96 95 Oxygen Delivery Method Oxygen Flow Rate 11/30/24 13:30 11/30/24 13:36 11/30/24 13:36 Temperature Pulse Rate 133 H Respiratory Rate 17 Blood Pressure 92/59 L 81/54 L Pulse Oximetry 93 Oxygen Delivery Method Oxygen Flow Rate 11/30/24 13:40 11/30/24 13:40 11/30/24 13:45 Temperature Pulse Rate 130 H Respiratory Rate 16 Blood Pressure 110/73 103/77 Pulse Oximetry 93 Oxygen Delivery Method Oxygen Flow Rate 11/30/24 13:45 11/30/24 13:50 11/30/24 13:50 Temperature Pulse Rate 129 H 129 H Respiratory Rate 23 16 Blood Pressure 105/73 Pulse Oximetry 95 94 Oxygen Delivery Method Oxygen Flow Rate 11/30/24 13:55 11/30/24 13:55 11/30/24 14:00 Temperature Pulse Rate 129 H Respiratory Rate Blood Pressure 108/76 108/73 Pulse Oximetry 94 Oxygen Delivery Method Oxygen Flow Rate 11/30/24 14:00 11/30/24 14:05 11/30/24 14:05 Temperature Pulse Rate 128 H 128 H Respiratory Rate 20 Blood Pressure 119/75 Pulse Oximetry 94 93 Oxygen Delivery Method Oxygen Flow Rate 11/30/24 14:06 11/30/24 14:07 11/30/24 14:09 Temperature Pulse Rate 128 H Respiratory Rate 16 Blood Pressure 119/75 110/59 L Pulse Oximetry 94 Oxygen Delivery Method Oxygen Flow Rate 0 2 11/30/24 14:09 11/30/24 14:11 11/30/24 14:11 Temperature Pulse Rate 49 L 46 L Respiratory Rate 23 19 Blood Pressure 118/57 L 118/57 L Pulse Oximetry 94 96 Oxygen Delivery Method Oxygen Flow Rate 2 11/30/24 14:11 11/30/24 14:16 11/30/24 14:16 Temperature 97.6 F Pulse Rate 46 L 45 L 45 L Respiratory Rate 16 Blood Pressure 102/50 L Pulse Oximetry 96 96 97 Oxygen Delivery Method Oxygen Flow Rate 2 11/30/24 14:16 11/30/24 14:20 11/30/24 14:20 Temperature Pulse Rate 45 L Respiratory Rate 20 Blood Pressure 102/50 L 97/52 L Pulse Oximetry 96 Oxygen Delivery Method Oxygen Flow Rate 11/30/24 14:21 11/30/24 14:25 11/30/24 14:25 Temperature Pulse Rate 47 L 46 L Respiratory Rate 16 27 H Blood Pressure 97/52 L 104/57 L Pulse Oximetry 96 96 Oxygen Delivery Method Oxygen Flow Rate 2 11/30/24 14:26 11/30/24 14:30 11/30/24 14:30 Temperature Pulse Rate 46 L 47 L Respiratory Rate 16 Blood Pressure 104/57 L 114/55 L Pulse Oximetry 95 96 Oxygen Delivery Method Oxygen Flow Rate 0 11/30/24 14:31 11/30/24 14:35 11/30/24 14:35 Temperature Pulse Rate 47 L 46 L Respiratory Rate 18 24 Blood Pressure 114/55 L 116/56 L Pulse Oximetry 96 96 Oxygen Delivery Method Oxygen Flow Rate 0 11/30/24 14:36 11/30/24 14:37 11/30/24 14:40 Temperature Pulse Rate 48 L 48 L Respiratory Rate 16 16 Blood Pressure 116/56 L 116/56 L 105/53 L Pulse Oximetry 95 96 Oxygen Delivery Method Oxygen Flow Rate 0 0 11/30/24 14:40 11/30/24 14:45 11/30/24 14:45 Temperature Pulse Rate 46 L 46 L Respiratory Rate 17 Blood Pressure 105/56 L Pulse Oximetry 95 95 Oxygen Delivery Method Oxygen Flow Rate 11/30/24 14:50 11/30/24 14:50 Temperature Pulse Rate 50 L Respiratory Rate Blood Pressure 112/58 L Pulse Oximetry 95 Oxygen Delivery Method Oxygen Flow Rate MDM - Arrhythmia/Palpitations Lab Data 11/30/24 12:13 11/30/24 12:13 Labs: Lab Results 11/30/24 Range/Units 12:13 WBC 7.9 (4.5-11.0) X10^3/uL RBC 4.64 (4.5-5.9) X10^6/uL Hgb 14.3 (13.5-17.5) g/dL Hct 42.3 (41-53) % MCV 91.2 (80-100) fL MCH 30.8 (26-34) PG MCHC 33.8 (30-36) % RDW 14.0 (11.6-14.8) % Plt Count 232 (150-400) X10^3/uL Neut % (Auto) 51.6 (50-75) % Lymph % (Auto) 38.6 (25-40) % Leslie % (Auto) 5.2 (3-14) % Eos % (Auto) 4.1 H (2-4) % Baso % (Auto) 0.5 (0-2) % Neut # (Auto) 4100 (4891-7602) /uL Lymph # (Auto) 3000 (7308-0718) /uL Leslie # (Auto) 400 (0-900) /uL Eos # (Auto) 300 (0-450) /uL Baso # (Auto) 0 (0-100) /uL PT 13.8 H (9.4-12.5) SECONDS INR 1.2 (0.9-1.3) APTT 125 H* (25.1-36.5) SECONDS Sodium 138 (137-145) mmol/L Potassium 4.0 (3.4-5.1) mmol/L Chloride 103 (98-107) mmol/L Carbon Dioxide 25 (22-32) mmol/L BUN 18 (9-20) mg/dL Creatinine 0.94 (0.66-1.25) mg/dL Estimated GFR > 60 (>60) mL/min BUN/Creatinine Ratio 19.1 (6-22) Glucose 150 H (80-110) mg/dL Calcium 9.4 (8.4-10.2) mg/dL Magnesium 1.8 (1.6-2.3) mg/dL Total Bilirubin 0.9 (0.2-1.3) mg/dL AST 34 (17-59) IU/L ALT 31 (<50) IU/L Alkaline Phosphatase 57 (38-126) U/L Total Creatine Kinase 57 (55-170) U/L Troponin I < 0.012 (0.01-0.034) ng/mL NT-Pro-B Natriuret Pep 504 H (<450) pg/mL Total Protein 7.6 (6.3-8.2) g/dL Albumin 4.5 (3.5-5.0) g/dL Globulin 3.1 (1.7-4.1) g/dL Albumin/Globulin Ratio 1.5 (1.0-2.8) Lipase 54 (23-300) U/L Imaging Data Chest x-ray: Radiologist's Impresson: PROCEDURE: XR CHEST 1V INDICATIONS: chest pain TECHNIQUE: One view of the chest was acquired. COMPARISON: [facility], CR, XR CHEST 1V, 11/26/2023, 15:53. FINDINGS: Surgical changes and devices: None. Lungs and pleura: Lungs are clear. No pleural effusions or pneumothorax. Mediastinum: Mediastinal contours appear normal. Heart size is normal. Bones and chest wall: No suspicious bony lesions. Overlying soft tissues appear unremarkable. IMPRESSION: No acute cardiopulmonary abnormality is seen. Dictated by: Kia Cortés M.D. on 11/30/2024 at 11:20 ECG Data Attestation: I personally reviewed and interpreted this ECG as follows: Prior ECG tracings: available for review Interpretation: Atrial flutter wide complex similar to previous EKGs in November of 2023 persistent right bundle-branch block similar he does have some ST depression in lateral leads which is also consistent EKGs 2. Sinus rhythm with right bundle-branch block MDM Narrative Medical decision making narrative: MDM CC: Dizziness Complicating co-morbidities: Atrial fibrillation hypertension hyperlipidemia sleep apnea BPH Medical records reviewed: PCP record reviewed also ER visit from November 2023 reviewed similar presentation AFib with RVR but self converted at that time Nuclear stress test 01/23/2024 low risk study Small size mild intensity fixed inferior apical and inferior lateral apical wall defect improves does not completely resolve with prone imaging no significant hypokinesis noted making this most consistent with artifact however subcostal scar can not be ruled out. No reversible perfusion defects no exercise-induced EKGs changes normal hemodynamic response good cardiac capacity Differential considered: Atrial flutter atrial fibrillation SVT sinus tachycardic Exam documented above, pertinent findings include: Awake alert pleasant 84-year-old male no evidence of peripheral edema tachycardic no respiratory distress Lab Test results independently reviewed as above. Pertinent findings: No anemia or leukocytosis Electrolytes stable no JOSH Troponin negative BNP 504 PTT 125 Independently reviewed EKG as above Wide complex tachycardia rate 140 Repeat EKGs sinus rhythm rate 46 IA interval 222 no ischemia T-wave inversion noted in lead 3 and AVF new Imaging studies independently reviewed: No acute cardiopulmonary process Consultations: [ ] Treatments: Diltiazem, metoprolol, cardioverted Re-evaluations: Patient had no response to diltiazem, metoprolol was then given it did slow his heart rate down by 10 points but blood pressure dropped some. This is to be medication induced rather than cardiac induced. Blood pressure improved with IV fluids and time. However blood pressure is noted to be soft while in the ED Patient was given 50 mg of propofol fall he tolerated the procedure well. Push dose epinephrine was on hand but he did not needed Discussion: Patient 84-year-old male history of atrial fibrillation presenting to day with AFib with RVR. Blood pressure some what soft. It did get lower with medication however he remained pretty asymptomatic. Systolic blood pressure was above 100 at time of cardioversion. He tolerated 50 mg of propofol well. He easily converted with 120 joules. Now feeling much better. Discharge Plan Departure Patient Disposition: Home Clinical Impression: Atrial fibrillation Instructions: DI for Atrial Fibrillation Activity Restrictions/Additional Instructions: *You have been diagnosed with atrial fibrillation *What to do: At this time please follow-up with your electronics scale tester *Continue to take medications as directed *Follow up with your primary care provider in 2-3 days or call [phone] *Return to ER if you should have increasing chest pain palpitations dizziness or any new, worsening or concerning symptoms Prescriptions: No Action amlodipine 5 mg tablet 5 mg PO DAILY Qty: 90 3RF lisinopril 20 mg tablet 20 mg PO DAILY Qty: 90 3RF dabigatran etexilate 150 mg capsule 150 mg PO BID Qty: 60 5RF tamsulosin 0.4 mg capsule 0.4 mg PO BEDTIME Qty: 90 3RF metoprolol tartrate 25 mg tablet 25 mg PO BID atorvastatin 20 mg tablet 20 mg PO DAILY Referrals: Mil Akers MD [Primary Care Provider] - Stand Alone Forms: Patient Portal/API/Survey
[2024-11-30] MEDS: SODIUM CHLORIDE 0.9% 1,000 ML 1000 ML IV (13:53)
--- NOTE | 2024-11-30 14:14 | EKG_ITS ---
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
[2024-11-30] MEDS: propofoL 200 MG/20 ML VIAL 95 MG IV (14:47)
== END 2024-11-30 14:58 | disposition home or self-care (01) ==
PROVIDERS: Emergency Provider Emergency Medicine; PCP Internal Medicine
DX: I48.91 Unspecified atrial fibrillation (principal); I45.10 Unspecified right bundle-branch block; R42 Dizziness and giddiness; I95.9 Hypotension, unspecified; R07.9 Chest pain, unspecified; Z79.01 Long term (current) use of anticoagulants
CPT/HCPCS: 71045; 80053; 82550; 83690; 83735; 83880; 84484; 85025; 85610; 85730; 92960; 93005; 96361; 96374; 96375; 99152; 99284; 99285; J2704

== ENCOUNTER → 2024-12-24 10:17 | Outpatient (CLI) | payer MEDICARE, BC, SELFPAY ==
--- NOTE | 2024-12-24 10:20 | DI.ECHO.S_ITS ---
[place] +---------+ [facility] : : [address] : : [place] : : [id number] : : Phone: [phone] Echocardiogram Report + + :Name: NADIA LORD Study Date: 12/24/2024 Height: 70 in : :Hospital ReadingLocation: Weight: 205 lb : : Gender: Male BSA: 2.1 m2 : :: 1940 Age: 84 yrs BP: 128/65 mmHg: :Reason For Study: CARDIOMYOPATHY : :Ordering Physician: HILLARY, : :FRIDA Performed By: Ene Lee : :Referring: FRIDA THORNTON : + + Interpretation Summary Left ventricular systolic function remains mildly reduced with an estimated ejection fraction of 45 to 50% with hypokinesis in the proximal and distal inferior wall, extending into the posterior wall and into the distal inferior septum that appears unchanged from the previous study although global contractility appears slightly more dynamic. Left ventricular volumes are borderline increased but slightly smaller. There is no compelling evidence for significant diastolic dysfunction or elevated filling pressures which are likely similar to the previous study. The right ventricle remains mildly enlarged and borderline hypokinetic but unchanged from the previous study. Right ventricular systolic pressure cannot be estimated but CVP is likely around 3 mmHg. There is mild left atrial enlargement that measures slightly larger compared to the previous study, and borderline right atrial enlargement that measures smaller. There is mild mitral regurgitation that appears unchanged. There is moderate aortic stenosis that is progressive since the previous study with a peak transvalvular velocity of 3.2 m/s and a mean gradient of 25 mmHg, compared to 2.7 m/s and 17 mmHg, respectively, previously. 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 There is mild aortic regurgitation that remains unchanged. The aortic root and ascending aorta are mildly enlarged, the former measuring slightly larger compared to the previous study. The patient's rhythm was sinus bradycardia at 48 to 53 bpm, slightly slow compared to the previous study. Procedure: A two-dimensional transthoracic echocardiogram with color flow and Doppler was performed. The study quality was technically difficult. Comparison is made with the echocardiogram of 12/02/2023. The patient was in sinus bradycardia with heart rates between 48-50 bpm during the exam. Left Ventricle: The left ventricle is normal in size and wall thickness. The estimated left ventricular end diastolic volume is 109 mL compared to the previous 170 ml. The ejection fraction is estimated to be 45-50%. Left ventricular systolic function is mildly reduced. There is hypokinesis in the proximal and distal inferior wall, extending into the posterior wall and the distal inferior septum but this all appears unchanged from the previous study. Global contractility appears slightly improved and left ventricular volumes are slightly smaller. Diastolic parameters suggest probable normal left ventricular diastolic function and normal filling pressures. Right Ventricle: The right ventricle is mildly dilated. Right ventricular systolic function is borderline reduced. This is unchanged compared to the previous study. Atria: The left atrium is mildly dilated. The left atrium has mildly increased in size since the prior echo exam. The right atrium is borderline dilated. The right atrium has mildly decreased in size since the prior echo exam. There is no Doppler evidence for an interatrial shunt. Mitral Valve: There is mild mitral annular calcification. The mitral valve leaflets appear to open well. There is mild mitral regurgitation. This is unchanged compared to the previous study. Aortic Valve: The aortic valve is trileaflet. The aortic valve is moderately calcified. There is moderately reduced leaflet mobility. There is moderate aortic stenosis. This is mildly progressive compared to the previous study. The peak aortic velocity is 3.2 m/sec. The peak aortic velocity on the previous exam was 2.7 m/sec. The aortic valve mean gradient is 25 mmHg compared to the previous 17 mmHg. The calculated aortic valve area is 1.1 cm2. The severity ratio is slightly lower at 0.28 compared to 0.29 previously. There is mild aortic regurgitation. This is unchanged compared to the previous study. Tricuspid Valve: The tricuspid valve leaflets are thin and pliable. There is trace tricuspid regurgitation. Pulmonary artery pressures cannot be estimated because of the lack of a measurable TR jet velocity but the IVC suggests a CVP of around 3 mmHg. Pulmonic Valve: The pulmonic valve is not well visualized. There is no pulmonic valvular regurgitation. Great Vessels: The aortic root is mildly dilated. The ascending aorta is mildly enlarged. The aortic arch is normal in size. The IVC is of normal diameter and collapses greater than 50% with a sniff. This suggests a low right atrial pressure of 3 mm Hg. Pericardium/ Pleura There is no pericardial effusion. There is no pleural effusion. MMode/2D Measurements & Calculations LVIDd: 5.7 cm LVOT diam: 2.3 cm LVIDs: 4.3 cm Ao root diam: 4.2 cm FS: 24.0 % asc Aorta Diam: 3.6 cm EPSS: 1.8 cm Ao Arch Diam (Prox Trans): 2.7 cm IVSd: 0.94 cm LVPWd: 0.86 cm LV burnett. diameter/BSA (cm/m^2): 2.7 LV sys. diameter/BSA (cm/m^2): 2.1 LA A2 area: 25.0 cm2 RA long axis: 6.2 cm LA A4 area: 23.8 cm2 RA area: 20.4 cm2 LA length (vol): 6.3 cm RA vol: 57.3 ml LA vol: 79.6 ml RA : 27.2 ml/m2 LA vol index: 37.7 ml/m2 IVC diam: 1.5 cm RVD1 (basal): 4.1 cm RVD2 (mid): 3.6 cm TAPSE: 2.0 cm Doppler Measurements & Calculations Ao V2 max: 318.7 cm/sec LVOT Max Enoch: 85.8 cm/sec Ao V2 mean: 232.2 cm/sec LV V1 max P.9 mmHg Ao max P.6 mmHg LV V1 VTI: 22.9 cm Ao mean P.8 mmHg GABRIELA(I,D): 1.2 cm2 Ao V2 VTI: 81.8 cm GABRIELA(V,D): 1.1 cm2 sev ratio: 0.28 GABRIELA indexed to BSA (cm^2/m^2): 0.55 AI P1/2t: 718.6 msec AI dec slope: 135.3 cm/sec2 MV E max enoch: 83.4 cm/sec PA V2 max: 75.9 cm/sec MV A max enoch: 85.4 cm/sec PA V2 mean: 54.7 cm/sec MV E/A: 0.98 PA mean P.3 mmHg Med Peak E' Enoch: 7.3 cm/sec PA pr(Accel): 13.5 mmHg E/E' med: 11.4 Lat Peak E' Enoch: 7.6 cm/sec E/E' lat: 11.0 E/e' average: 11.2 MV dec time: 0.31 sec SV(LVOT): 95.1 ml Reading Physician:05:57 PM
== END ==
LOC: ECHO 10:19
PROVIDERS: PCP Internal Medicine; Referring Provider Specialist; Visit Provider Specialist
DX: I08.0 Rheumatic disorders of both mitral and aortic valves (principal); I77.89 Other specified disorders of arteries and arterioles; I77.810 Thoracic aortic ectasia; I42.9 Cardiomyopathy, unspecified
CPT/HCPCS: 93306

== ENCOUNTER → 2025-01-08 07:34 | Outpatient (CLI) | payer MEDICARE, BC, SELFPAY ==
[2025-01-08 08:04] LABS: Hematocrit 34.8 % (41-53); Hemoglobin 11.9 g/dL (13.5-17.5); Mean Corpuscular HGB Conc 34.3 % (30-36); Mean Corpuscular Hemoglobin 31.3 PG (26-34); Mean Corpuscular Volume 91.2 fL (80-100); Platelet Count 187 X10^3/uL (150-400); Red Blood Cell Count 3.81 X10^6/uL (4.5-5.9); Red Cell Distribution Width 14.1 % (11.6-14.8); White Blood Cell Count 6.1 X10^3/uL (4.5-11.0)
[2025-01-08 08:52] LABS: Alanine Aminotransferase 25 IU/L (<50); Albumin 4.1 g/dL (3.5-5.0); Albumin Globulin Ratio 1.6 (1.0-2.8); Alkaline Phosphatase 54 U/L (38-126); Aspartate Aminotransferase 29 IU/L (17-59); BUN Creatinine Ratio 23.5 (6-22); Bilirubin Total 0.9 mg/dL (0.2-1.3); Blood Urea Nitrogen 20 mg/dL (9-20); Calcium 9.2 mg/dL (8.4-10.2); Carbon Dioxide 27 mmol/L (22-32); Chloride 103 mmol/L (98-107); Estimated Glomerular Filt Rate > 60 mL/min (>60); Globulin 2.5 g/dL (1.7-4.1); Glucose 105 mg/dL (80-110); HEMOLYSIS < 15 (0-50); Potassium 4.7 mmol/L (3.4-5.1); Sodium 138 mmol/L (137-145); Total Protein 6.6 g/dL (6.3-8.2)
[2025-01-11 09:41] LABS: Cholesterol, Total 144 mg/dL (100-199); HDL-Cholesterol 47 mg/dL (>39); HDL-Particle (Total) 31.4 umol/L (>=30.5); Historical Reading Comment: (.); LDL Particle 939 nmol/L (<1000); LDL Size 20.8 nm (>20.5); LDL-Cholsterol 79 mg/dL (0-99); LP-IR Score 53 (<=45); Small LDL- Particle 340 nmol/L (<=527); Triglycerides 99 mg/dL (0-149)
== END ==
PROVIDERS: PCP Internal Medicine; Referring Provider Specialist; Visit Provider Specialist
DX: I48.92 Unspecified atrial flutter (principal); I10 Essential (primary) hypertension; E78.00 Pure hypercholesterolemia, unspecified
CPT/HCPCS: 36415; 80053; 80061; 83704; 83735; 85027

== ENCOUNTER → 2025-04-20 07:21 | Outpatient (CLI) | payer MEDICARE, BC, SELFPAY ==
[2025-04-20 08:11] LABS: Blood Urea Nitrogen 27 mg/dL (9-20); Calcium 9.4 mg/dL (8.4-10.2); Carbon Dioxide 25 mmol/L (22-32); Chloride 104 mmol/L (98-107); Estimated Glomerular Filt Rate > 60 mL/min (>60); Glucose 104 mg/dL (70-99); HEMOLYSIS 16 (0-50); Potassium 4.7 mmol/L (3.4-5.1); Sodium 138 mmol/L (137-145)
== END ==
PROVIDERS: PCP Internal Medicine; Referring Provider Internal Medicine Cardiovascular Disease; Visit Provider Internal Medicine Cardiovascular Disease
DX: I48.92 Unspecified atrial flutter (principal)
CPT/HCPCS: 36415; 80048

== ENCOUNTER → 2025-04-24 07:26 | Outpatient (CLI) | payer MEDICARE, BC, SELFPAY ==
[2025-04-24 08:20] LABS: Add Manual Diff / Slide Review NO; Hematocrit 37.2 % (41-53); Hemoglobin 12.8 g/dL (13.5-17.5); Lymphocytes Absolute Auto 2600 /uL (1100-4500); Mean Corpuscular HGB Conc 34.3 % (30-36); Mean Corpuscular Hemoglobin 31.4 PG (26-34); Mean Corpuscular Volume 91.6 fL (80-100); Platelet Count 195 X10^3/uL (150-400)
== END ==
PROVIDERS: PCP Internal Medicine; Referring Provider Internal Medicine Cardiovascular Disease; Visit Provider Internal Medicine Cardiovascular Disease
DX: I48.92 Unspecified atrial flutter (principal)
CPT/HCPCS: 36415; 85025

== ENCOUNTER → 2025-07-16 13:33 | Outpatient (CLI) | payer MEDICARE, BC, SELFPAY ==
--- NOTE | 2025-07-16 13:34 | DI.ECHO.S_ITS ---
[facility] : : [address] : : [place] : : [id number] : : Phone: [phone] Echocardiogram Report + + :Name: NADIA LORD Study Date: 07/16/2025 Height: 70 in : :Hospital ReadingLocation: Weight: 210 lb : : Gender: Male BSA: 2.1 m2 : :: 1940 Age: 85 yrs BP: 155/72 mmHg: :Reason For Study: PAROXYSMAL ATRIAL FLUTTER : :Ordering Physician: JOSEFA, : :CHRISTY Performed By: Bryan Hdz : :Referring: CHRISTY RIVERO : + + Interpretation Summary - The left ventricular contractility is normal. Estimated ejection fraction is greater than 55% with no segmental wall motion abnormalities. Mild concentric left ventricular hypertrophy grade 1 diastolic dysfunction. - The right ventricular contractility is normal. - Mild right ventricular enlargement. All other cardiac chambers are of normal size. - Moderate aortic valvular stenosis with peak velocity of 3.6 m/s. Mean gradient of 32 mmHg. Dimensionless index of 0.31. Trace to mild aortic insufficiency. - No obvious intracardiac shunts. - No obvious intracardiac masses or thrombi. - No hemodynamically significant pericardial effusion. - Low right-sided filling pressures. - Mildly dilated aortic root and ascending thoracic aorta without obvious dissection. Conclusion: Normal biventricular systolic function with moderate aortic valvular stenosis with trace to mild aortic insufficiency. When compared with previous echocardiogram, there is improvement of the left ventricular contractility with slight progression of the aortic valvular stenosis. Procedure: A two-dimensional transthoracic echocardiogram with color flow and Doppler was performed. The study quality was technically good. Comparison is made with the echocardiogram of 12/24/2024. The patient was in normal sinus rhythm during the exam. Left Ventricle: The left ventricle is normal in size. Left ventricular wall thickness is mildly increased. There is no ventricular septal defect visualized. The ejection fraction is estimated to be 55-60%. Grade I diastolic dysfunction with normal left atrial pressure. Right Ventricle: The right ventricle is mildly dilated. The right ventricular systolic function is normal. Atria: The left atrial size is normal. Right atrial size is normal. There is no Doppler evidence for an interatrial shunt. Mitral Valve: There is mild mitral annular calcification. The mitral valve leaflets are mildly calcified. There is trace mitral regurgitation. Aortic Valve: The aortic valve is trileaflet. The aortic valve is moderately calcified. There is moderate aortic stenosis. The peak aortic velocity is 3.6 m/sec. The aortic valve mean gradient is 31.8 mmHg. There is mild aortic regurgitation. Tricuspid Valve: The tricuspid valve leaflets are thin and pliable. No tricuspid regurgitation. Pulmonic Valve: The pulmonic valve is not well visualized. There is no pulmonic valvular regurgitation. Great Vessels: The aortic root is mildly dilated. The ascending aorta is mildly enlarged. The pulmonary artery is normal size. The IVC is of normal diameter and collapses greater than 50% with a sniff. This suggests a low right atrial pressure of 3 mm Hg. Pericardium/ Pleura There is no pericardial effusion. There is no pleural effusion. MMode/2D Measurements & Calculations LVIDd: 5.6 cm LVOT diam: 2.2 cm LVIDs: 4.3 cm Ao root diam: 4.2 cm FS: 23.3 % asc Aorta Diam: 3.7 cm EPSS: 1.8 cm IVSd: 1.3 cm LVPWd: 1.3 cm LV burnett. diameter/BSA (cm/m^2): 2.6 LV sys. diameter/BSA (cm/m^2): 2.0 LA A2 area: 21.5 cm2 RA long axis: 4.6 cm LA A4 area: 19.1 cm2 RA area: 18.0 cm2 LA length (vol): 6.2 cm RA vol: 60.5 ml LA vol: 56.6 ml RA : 28.4 ml/m2 LA vol index: 26.6 ml/m2 IVC diam: 1.9 cm RVD1 (basal): 4.5 cm RVD2 (mid): 3.5 cm TAPSE: 3.0 cm Doppler Measurements & Calculations Ao V2 max: 364.1 cm/sec LVOT Max Enoch: 111.6 cm/sec Ao V2 mean: 270.1 cm/sec LV V1 max P.0 mmHg Ao max P.0 mmHg LV V1 VTI: 26.9 cm Ao mean P.8 mmHg GABRIELA(I,D): 1.2 cm2 Ao V2 VTI: 86.3 cm GABRIELA(V,D): 1.2 cm2 sev ratio: 0.31 GABRIELA indexed to BSA (cm^2/m^2): 0.56 MV E max enoch: 84.8 cm/sec PA V2 max: 97.6 cm/sec MV A max enoch: 112.0 cm/sec PA V2 mean: 67.3 cm/sec MV E/A: 0.76 PA mean P.0 mmHg Med Peak E' Enoch: 5.5 cm/sec PA pr(Accel): 39.6 mmHg E/E' med: 15.6 Lat Peak E' Enoch: 6.9 cm/sec E/E' lat: 12.3 E/e' average: 13.9 MV dec time: 0.40 sec SV(LVOT): 102.8 ml Reading Physician:JEROME
== END ==
LOC: ECHO 13:34
PROVIDERS: PCP Internal Medicine; Referring Provider Internal Medicine Cardiovascular Disease; Visit Provider Internal Medicine Cardiovascular Disease
DX: I34.81 Nonrheumatic mitral (valve) annulus calcification (principal); I35.2 Nonrheumatic aortic (valve) stenosis with insufficiency; I48.92 Unspecified atrial flutter; I77.89 Other specified disorders of arteries and arterioles; I77.810 Thoracic aortic ectasia
CPT/HCPCS: 93306

== ENCOUNTER → 2025-08-18 08:02 | Outpatient (CLI) | payer MEDICARE, BC, SELFPAY ==
[2025-08-18 08:23] LABS: Hematocrit 36.4 % (41-53); Hemoglobin 12.3 g/dL (13.5-17.5); Mean Corpuscular HGB Conc 33.9 % (30-36); Mean Corpuscular Hemoglobin 30.7 PG (26-34); Mean Corpuscular Volume 90.7 fL (80-100); Platelet Count 204 X10^3/uL (150-400)
[2025-08-18 10:23] LABS: Alanine Aminotransferase 23 IU/L (<50); Albumin 4.3 g/dL (3.5-5.0); Albumin Globulin Ratio 1.6 (1.0-2.8); Alkaline Phosphatase 63 U/L (38-126); Blood Urea Nitrogen 18 mg/dL (9-20); Calcium 9.3 mg/dL (8.4-10.2); Carbon Dioxide 26 mmol/L (22-32); Chloride 105 mmol/L (98-107); Cholesterol 134 mg/dL (140-199); Estimated Glomerular Filt Rate > 60 mL/min (>60); Globulin 2.7 g/dL (1.7-4.1); Glucose 101 mg/dL (70-99); HDL Cholesterol 49 mg/dL (40-60); HEMOLYSIS 15 (0-50); Magnesium 1.9 mg/dL (1.6-2.3); Potassium 4.6 mmol/L (3.4-5.1); Sodium 140 mmol/L (137-145); Total Protein 7.0 g/dL (6.3-8.2); Triglycerides 90 mg/dL (35-150)
== END ==
PROVIDERS: PCP Internal Medicine; Referring Provider Internal Medicine Cardiovascular Disease; Visit Provider Internal Medicine Cardiovascular Disease
DX: E78.00 Pure hypercholesterolemia, unspecified (principal); I48.3 Typical atrial flutter; I48.92 Unspecified atrial flutter; Z79.01 Long term (current) use of anticoagulants
CPT/HCPCS: 36415; 80053; 80061; 83735; 85027

== ENCOUNTER → 2025-09-10 06:37 | Outpatient (CLI) | payer MEDICARE, BC, SELFPAY ==
--- NOTE | 2025-09-10 06:38 | DI.US.S_ITS ---
PROCEDURE: US CAROTID DOPPLER BI INDICATIONS: Bruit; Bilateral carotid bruits TECHNIQUE: Color and pulse Doppler interrogation was performed of both carotid systems, with image documentation and velocity measurements. COMPARISON: None. FINDINGS: Stenosis calculations are based on SRU (Society of Radiologists in Ultrasound) criteria. Right side: Common carotid artery peak systolic velocity: 95 cm/sec. Internal carotid artery peak systolic velocity: 97 cm/sec. Internal carotid artery end diastolic velocity: 11 cm/sec. External carotid artery peak systolic velocity: 120 cm/sec. ICA/CCA peak systolic ratio: 1.0 . Griffin scale imaging description: Atherosclerotic plaques Percent internal carotid artery stenosis: Less than 50% . Vertebral artery: Flow direction is antegrade. Left side: Common carotid artery peak systolic velocity: 85 cm/sec. Internal carotid artery peak systolic velocity: 79 cm/sec. Internal carotid artery end diastolic velocity: 15 cm/sec. External carotid artery peak systolic velocity: 184 cm/sec. ICA/CCA peak systolic ratio: 0.9 . Girffin scale imaging description: Atherosclerotic plaques Percent internal carotid artery stenosis: Less than 50% . Vertebral artery: Flow direction is antegrade. IMPRESSION: 1. In the right carotid artery, there is less than 50% stenosis based on peak systolic velocity criteria. 2. In the left carotid artery, there is less than 50% stenosis based on peak systolic velocity criteria. 3. Antegrade vertebral arteries. Dictated by: Cristian Thibodeaux M.D. on 09/10/2025 at 8:45 Approved by: Cristian Thibodeaux M.D. on 09/10/2025 at 8:47
== END ==
PROVIDERS: PCP Internal Medicine; Referring Provider Internal Medicine; Visit Provider Internal Medicine
DX: I65.23 Occlusion and stenosis of bilateral carotid arteries (principal); R09.89 Other specified symptoms and signs involving the circulatory and respiratory systems
CPT/HCPCS: 93880